=== PATIENT | female | born 1955 | race Caucasian/White ===

== ENCOUNTER 2022-10-25 15:47 | Emergency (ER) | payer MEDICARE ==
[~2022-10-25] VITALS: Ht 165.1 cm; Wt 113.4 kg
[~2022-10-25 15:47] MED LIST: Lasix20 MG PO; Macrobid 100 M100 MG PO
[2022-10-25 16:35] LABS: BASOPHILS ABSOLUTE AUTO 0.02 K/mm3 (0.00-0.23); BASOPHILS PERCENT AUTO 0 % (0-2); EOSINOPHILS ABSOLUTE AUTO 0.25 K/mm3 (0.00-0.68); EOSINOPHILS PERCENT AUTO 4 % (0-6); Hematocrit 42.4 % (33.0-51.0); Hemoglobin 14.3 g/dL (11.5-16.0); IMMATURE GRAN ABSOLUTE AUTO 0.01 K/mm3 (0.00-0.10); IMMATURE GRAN PERCENT AUTO 0 % (0-1); LYMPHOCYTES ABSOLUTE AUTO 1.14 K/mm3 (0.84-5.20); LYMPHOCYTES PERCENT AUTO 19 % (21-46); MONOCYTES ABSOLUTE AUTO 0.45 K/mm3 (0.16-1.47); MONOCYTES PERCENT AUTO 7 % (4-13); Mean Corpuscular HGB 32.4 pg (26.0-34.0); Mean Corpuscular HGB Conc 33.7 g/dL (31.5-36.5); Mean Corpuscular Volume 96 fL (80-100); Mean Platelet Volume 8.9 fL (9.1-12.4); NEUTROPHILS ABSOLUTE AUTO 4.23 K/mm3 (1.96-9.15); NEUTROPHILS PERCENT AUTO 69 % (41-73); Platelet Count 303 K/mm3 (150-400); RDW Coefficient Variation 13.8 % (11.7-14.2); RDW Standard Deviation 48.7 fL (35.1-46.3); Red Blood Cell Count 4.41 M/mm3 (3.80-5.20)
[2022-10-25 17:03] LABS: Albumin/Globulin Ratio 0.7 (0.8-1.8); Bilirubin, Total 0.8 mg/dL (0.1-1.0); Bun/Creatinine Ratio 14.7 (12.0-20.0); Calcium, Blood 8.8 mg/dL (8.5-10.1); Creatinine, Blood 0.82 mg/dL (0.40-1.00); Globulin, Blood 4.3 g/dL (2.2-4.0); Potassium, Blood 3.4 mmol/L (3.5-5.5); Total Protein, Blood 7.3 g/dL (6.4-8.2)
[2022-10-25] MEDS ORDERED: CEPH500 PO (20:35)
[2022-10-25 20:45] VITALS: BP 132/81
== END 2022-10-25 21:31 | disposition home or self-care (01) ==
LOC: ER 15:47
PROVIDERS: Physician Assistant
DX: L97.811 Non-pressure chronic ulcer of other part of right lower leg limited to breakdown of skin (principal); L97.821 Non-pressure chronic ulcer of other part of left lower leg limited to breakdown of skin; I10 Essential (primary) hypertension; Z79.899 Other long term (current) drug therapy; Z88.0 Allergy status to penicillin; Z88.2 Allergy status to sulfonamides; Z79.01 Long term (current) use of anticoagulants
CPT/HCPCS: 71046; 80053; 83880; 85025; 90471; 90714; 99283-25; A9270

== ENCOUNTER 2022-11-02 00:41 | Inpatient (IN) | payer MEDICARE ==
[~2022-11-02] VITALS: Ht 165.1 cm; Wt 113.4 kg
[~2022-11-02 00:41] MED LIST changes: +CEPH500 PO
[2022-11-02 04:04] LABS: BASOPHILS ABSOLUTE AUTO 0.03 K/mm3 (0.00-0.23); BASOPHILS PERCENT AUTO 0 % (0-2); EOSINOPHILS ABSOLUTE AUTO 0.24 K/mm3 (0.00-0.68); EOSINOPHILS PERCENT AUTO 3 % (0-6); Hematocrit 40.1 % (33.0-51.0); Hemoglobin 13.4 g/dL (11.5-16.0); IMMATURE GRAN ABSOLUTE AUTO 0.02 K/mm3 (0.00-0.10); IMMATURE GRAN PERCENT AUTO 0 % (0-1); LYMPHOCYTES ABSOLUTE AUTO 1.33 K/mm3 (0.84-5.20); LYMPHOCYTES PERCENT AUTO 19 % (21-46); MONOCYTES ABSOLUTE AUTO 0.49 K/mm3 (0.16-1.47); MONOCYTES PERCENT AUTO 7 % (4-13); Mean Corpuscular HGB 32.1 pg (26.0-34.0); Mean Corpuscular HGB Conc 33.4 g/dL (31.5-36.5); Mean Corpuscular Volume 96 fL (80-100); Mean Platelet Volume 8.9 fL (9.1-12.4); NEUTROPHILS ABSOLUTE AUTO 5.02 K/mm3 (1.96-9.15); NEUTROPHILS PERCENT AUTO 70 % (41-73); Platelet Count 235 K/mm3 (150-400); RDW Coefficient Variation 14.1 % (11.7-14.2); Red Blood Cell Count 4.18 M/mm3 (3.80-5.20); White Blood Cell Count 7.13 K/mm3 (4.00-11.30)
[2022-11-02 04:18] LABS: Albumin, Blood 2.7 g/dL (3.4-5.0); Albumin/Globulin Ratio 0.7 (0.8-1.8); Bilirubin, Total 0.9 mg/dL (0.1-1.0); Calcium, Blood 8.4 mg/dL (8.5-10.1); Creatinine, Blood 0.78 mg/dL (0.40-1.00); Globulin, Blood 3.9 g/dL (2.2-4.0); Potassium, Blood 3.4 mmol/L (3.5-5.5); Total Protein, Blood 6.6 g/dL (6.4-8.2)
[2022-11-02 06:41] VITALS: BP 123/59
[2022-11-02 08:03] VITALS: BP 120/57
[2022-11-02 10:52] LABS: Albumin, Blood 2.8 g/dL (3.4-5.0); Anion Gap 5 mmol/L (6-16); Blood Urea Nitrogen 13 mg/dL (8-24); Bun/Creatinine Ratio 17.5 (12.0-20.0); CO2, Blood 33 mmol/L (21-32); Calcium, Blood 8.4 mg/dL (8.5-10.1); Chloride, Blood 108 mmol/L (98-108); Creatinine, Blood 0.74 mg/dL (0.40-1.00); Glomerular Filtration Rate 88 (60-); Glucose, Blood 127 mg/dL (70-99); Phosphorus, Blood 2.7 mg/dL (2.5-4.9); Potassium, Blood 3.8 mmol/L (3.5-5.5); Sodium, Blood 146 mmol/L (136-145)
[2022-11-02] MEDS ORDERED: LOSARTAN-HCTZ1 EACH PO (14:48)
[2022-11-02] MEDS ORDERED: Doxycycline Mo100 M1 PO (14:50)
[2022-11-02 16:24] VITALS: BP 92/58
--- NOTE | 2022-11-02 19:22 | NUR ---
SHIFT SUMMARY PATIENT WITH PAIN TODAY, MEDICATED PER EMAR. PATIENT VERBALIZES STRESS OF FINANCIALS AND FOOD TO SUPERVISOR RESEARCH KENNEL REGARDING LIVING IN HER VAN WITH AND DOG, MOVING FROM [place] TO [place], TRYING TO GET THERE BUT HAVING MEDICAL ISSUES. BED IN LOW POSITION, CALL LIGHT IN REACH. PATIENT CALLS APPROPRIATELY.
[2022-11-02 19:24] VITALS: BP 103/56
[2022-11-03 05:17] VITALS: BP 119/71
[2022-11-03 06:03] LABS: BASOPHILS ABSOLUTE AUTO 0.01 K/mm3 (0.00-0.23); BASOPHILS PERCENT AUTO 0 % (0-2); EOSINOPHILS ABSOLUTE AUTO 0.24 K/mm3 (0.00-0.68); EOSINOPHILS PERCENT AUTO 4 % (0-6); Hematocrit 38.6 % (33.0-51.0); Hemoglobin 12.6 g/dL (11.5-16.0); IMMATURE GRAN ABSOLUTE AUTO 0.01 K/mm3 (0.00-0.10); IMMATURE GRAN PERCENT AUTO 0 % (0-1); LYMPHOCYTES ABSOLUTE AUTO 1.27 K/mm3 (0.84-5.20); LYMPHOCYTES PERCENT AUTO 22 % (21-46); MONOCYTES PERCENT AUTO 7 % (4-13); Mean Corpuscular HGB 31.7 pg (26.0-34.0); Mean Corpuscular HGB Conc 32.6 g/dL (31.5-36.5); Mean Corpuscular Volume 97 fL (80-100); Mean Platelet Volume 9.1 fL (9.1-12.4); NEUTROPHILS ABSOLUTE AUTO 3.77 K/mm3 (1.96-9.15); NEUTROPHILS PERCENT AUTO 66 % (41-73); Platelet Count 200 K/mm3 (150-400); RDW Standard Deviation 49.5 fL (35.1-46.3); Red Blood Cell Count 3.97 M/mm3 (3.80-5.20)
--- NOTE | 2022-11-03 06:14 | NUR ---
SHIFT AND SOCIAL WORK ALERT NOTE PATIENTS REMAINS ALERT AND ORIENTED X4, SOME HYPOTENTION BUT OTHERWISE VSS. WOUND CARE TO BLE COMPLETED THIS MORNING PATIENT IS INCONINENT AND SOILED THEM. PURWICK BEING USED WITH GOOD U/O. PATIENT WANTS HELP WITH HER DOG HER AND HER ILL ARE NOT ABLE TO CARE FOR HER. [facility] WAS MENTIONED AN OPTION. NO OTHER ISSUES TO REPORT.
[2022-11-03 06:31] LABS: Albumin, Blood 2.4 g/dL (3.4-5.0); Albumin/Globulin Ratio 0.6 (0.8-1.8); Bilirubin, Total 0.5 mg/dL (0.1-1.0); Bun/Creatinine Ratio 27.8 (12.0-20.0); Calcium, Blood 8.2 mg/dL (8.5-10.1); Creatinine, Blood 0.68 mg/dL (0.40-1.00); Globulin, Blood 3.7 g/dL (2.2-4.0); Potassium, Blood 3.7 mmol/L (3.5-5.5); Total Protein, Blood 6.1 g/dL (6.4-8.2)
[2022-11-03 07:52] VITALS: BP 102/66
[2022-11-03 15:17] VITALS: BP 108/74
[2022-11-03 15:43] LABS: Vancomycin, Trough 16.5 ug/mL (5.0-10.0)
--- NOTE | 2022-11-03 19:49 | NUR ---
SHIFT SUMMARY PATIENT WITH PAIN TODAY, MEDICATED PER EMAR. PUREWICK REMOVED DURING DAY TO INCREASE PATIENT ACTIVITY UP TO BATHROOM, PATIENT TOLERATED WELL BUT NEEDED NORCO MORE FREQUENTLY. PATIENT SAT ABOVE 94% ON ROOM AIR. NO ACUTE EVENTS TODAY. BED IN LOW POSITION, CALL LIGHT IN REACH. PATIENT STAYING IN ROOM WITH PATIENT OVERNIGHT
[2022-11-03 20:08] VITALS: BP 90/68
[2022-11-04 00:11] VITALS: BP 99/68
[2022-11-04 03:22] VITALS: BP 111/57
--- NOTE | 2022-11-04 04:17 | NUR ---
SHIFT SUMMARY: PATIENT A&OX4. CALM, PLEASANT AND COOPERATIVE c CARE. SOME HYPOTENSIVE BP OTHERWISE VSS. DENIES GENERALIZED PAIN OVERNIGHT. DRESSING TO BLE'S C/D/I. PUREWICKED IN PLACED AND CONNECTED TO SUCTION c TOTAL YELLOW URINE OUTPUT OF 200 MLS THIS SHIFT. REPOSITIONED. RECEIVED SCHEDULED MEDS PER EMAR. SPOUSE STAYED c PATIENT OVERNIGHT. PIV TO LAC INFUSING ABX AT THIS TIME. CALL LIGHT IN REACH. PATIENT AND SPOUSE EDUCATED ABOUT IGNITION SOURCES, RISK OF INJURY AND NON SMOKING POLICY. PATIENT AND SPOUSE DENIES SMOKING AND STATED UNDERSTANDING. POLICY
[2022-11-04 06:20] LABS: BASOPHILS ABSOLUTE AUTO 0.01 K/mm3 (0.00-0.23); BASOPHILS PERCENT AUTO 0 % (0-2); EOSINOPHILS ABSOLUTE AUTO 0.29 K/mm3 (0.00-0.68); EOSINOPHILS PERCENT AUTO 5 % (0-6); Hematocrit 39.8 % (33.0-51.0); Hemoglobin 13.2 g/dL (11.5-16.0); IMMATURE GRAN ABSOLUTE AUTO 0.01 K/mm3 (0.00-0.10); IMMATURE GRAN PERCENT AUTO 0 % (0-1); LYMPHOCYTES ABSOLUTE AUTO 0.91 K/mm3 (0.84-5.20); LYMPHOCYTES PERCENT AUTO 16 % (21-46); MONOCYTES PERCENT AUTO 7 % (4-13); Mean Corpuscular HGB 31.7 pg (26.0-34.0); Mean Corpuscular HGB Conc 33.2 g/dL (31.5-36.5); Mean Corpuscular Volume 96 fL (80-100); Mean Platelet Volume 9.5 fL (9.1-12.4); NEUTROPHILS ABSOLUTE AUTO 4.21 K/mm3 (1.96-9.15); NEUTROPHILS PERCENT AUTO 72 % (41-73); Platelet Count 213 K/mm3 (150-400); RDW Standard Deviation 48.8 fL (35.1-46.3); Red Blood Cell Count 4.16 M/mm3 (3.80-5.20); White Blood Cell Count 5.83 K/mm3 (4.00-11.30)
[2022-11-04 08:13] VITALS: BP 131/75
[2022-11-04 10:31] LABS: Albumin, Blood 2.4 g/dL (3.4-5.0); Anion Gap 7 mmol/L (6-16); Blood Urea Nitrogen 15 mg/dL (8-24); Bun/Creatinine Ratio 23.1 (12.0-20.0); CO2, Blood 32 mmol/L (21-32); Calcium, Blood 8.4 mg/dL (8.5-10.1); Chloride, Blood 104 mmol/L (98-108); Creatinine, Blood 0.65 mg/dL (0.40-1.00); Glomerular Filtration Rate 95 (60-); Glucose, Blood 95 mg/dL (70-99); Magnesium, Blood 1.8 mg/dL (1.6-2.4); Phosphorus, Blood 3.5 mg/dL (2.5-4.9); Potassium, Blood 3.4 mmol/L (3.5-5.5); Sodium, Blood 143 mmol/L (136-145)
[2022-11-04 15:37] VITALS: BP 135/83
[2022-11-04 19:14] VITALS: BP 101/64
--- NOTE | 2022-11-04 19:40 | NUR ---
SHIFT SUMMARY NO ACUTE EVENTS DURING SHIFT. DR FOWLER ORDERED ADDED LASIX THIS AFTERNOON. SWELLING HAS DECREASED SIGNIFICANTLY TO BLE. PATIENT UP TO BATHROOM WITH SBA WHEN HOOKED UP TO IV.BED IN LOW POSITION, CALL LIGHT IN REACH. PATIENT CALLS APPROPRIATELY. HOURLY ROUNDING PROVIDEDE TO PATIENT.
--- NOTE | 2022-11-05 03:20 | NUR ---
SHIFT SUMMERY. PT RESTING WELL , WOKE TO GO TO BR. SO AT BED SIDE SLEEPING IN RECLINER. PT MEDICATED FOR PAIN TO LEGS.
--- NOTE | 2022-11-05 03:22 | NUR ---
RAMYA VALENCIA TALKED ABOUT PT VU .
[2022-11-05 04:42] VITALS: BP 107/65
[2022-11-05 04:56] LABS: Bun/Creatinine Ratio 21.9 (12.0-20.0); Calcium, Blood 8.4 mg/dL (8.5-10.1); Creatinine, Blood 0.59 mg/dL (0.40-1.00); Potassium, Blood 3.8 mmol/L (3.5-5.5)
[2022-11-05 07:33] VITALS: BP 109/56
[2022-11-05 15:43] VITALS: BP 134/79
--- NOTE | 2022-11-05 18:26 | NUR ---
END OF SHIFT SUMMARY: PATIENT UP TO THE BATHROOM MULTIPLE TIMES TODAY. PATIENT'S LEGS ELEVATED THROUGHOUT THE DAY WITH PATIENT RECLINED TO PLACE FEET AT OR ABOVE HEART LEVEL. DRESSINGS REMAINED C/D/I THROUGHOUT THE DAY. PATIENT MEDICATED PER PRNS IN ADDITION TO REPOSITIONING TO ASSIST WITH PAIN CONTROL. PATIENT REPORTS THAT IT HAS BEEN A FEW DAYS SINCE HER LAST BOWEL MOVEMENT. PATIENT REPORTS THAT THIS IS NORMAL FOR HER RELATED TO MULTIPLE GASTIC SURGERIES. PATIENT DENIED NEED FOR ADDITIONAL BOWEL CARE AT THIS TIME, BUT DID REQUEST AND RECEIVE PRUNE JUICE. OXYGEN THERAPY NOT IN USE IN THE ROOM. NO FIRE HAZARDS NOTED THROUGHOUT THE DAY. REMINDED PATIENT AND PATIENT'S SPOUSE OF FIRE HAZARD PREVENTION AT [facility].
[2022-11-05 19:42] VITALS: BP 118/78
--- NOTE | 2022-11-06 04:21 | NUR ---
SHIFT SUMMARY: NO NEW ACUTE CHANGES IN PATIENT CONDITION THIS SHIFT. PATIENT A&OX4. PLEASANT AND COOPERATIVE c CARE. PATIENT IS CONTIN/INCOTIN OF BLADDER, AMBULATES TO BATHROOM c SBA T/O SHIFT AND TOLERATED WELL. PAIN TO BLE'S WELL CONTROLLED c EMAR PAIN MEDS. DRESSING CHANGED TO BLE'S PER WOUND CARE ORDER. PATIENT SLEPT WELL T/O SHIFT. VITAL SIGNS REVIEWED. CALL LIGHT IN REACH. SPOUSE STAYED c PATIENT OVERNIGHT. PATIENT AND SPOUSE EDUCATED ON NON SMOKING POLICY, IGNITION SOURCES AND RISK OF INJURY WHILE O2 IN USE. PATIENT AND SPOUSE DENIES SMOKING AND STATED UNDERSTANDING.
[2022-11-06 04:46] VITALS: BP 138/94
[2022-11-06 05:48] LABS: Hematocrit 38.8 % (33.0-51.0); Hemoglobin 12.8 g/dL (11.5-16.0); Mean Corpuscular HGB 31.9 pg (26.0-34.0); Mean Corpuscular Volume 97 fL (80-100); Mean Platelet Volume 9.3 fL (9.1-12.4); Platelet Count 206 K/mm3 (150-400); RDW Standard Deviation 48.9 fL (35.1-46.3); Red Blood Cell Count 4.01 M/mm3 (3.80-5.20); White Blood Cell Count 4.57 K/mm3 (4.00-11.30)
[2022-11-06 06:12] LABS: Albumin, Blood 2.5 g/dL (3.4-5.0); Anion Gap 4 mmol/L (6-16); Blood Urea Nitrogen 12 mg/dL (8-24); CO2, Blood 33 mmol/L (21-32); Calcium, Blood 8.5 mg/dL (8.5-10.1); Chloride, Blood 107 mmol/L (98-108); Glomerular Filtration Rate 97 (60-); Glucose, Blood 94 mg/dL (70-99); Phosphorus, Blood 2.7 mg/dL (2.5-4.9); Potassium, Blood 4.1 mmol/L (3.5-5.5); Sodium, Blood 144 mmol/L (136-145)
[2022-11-06 07:44] VITALS: BP 135/83
--- NOTE | 2022-11-06 16:22 | NUR ---
WOUND CARE BLE MUCH IMPROVED. RLE WOUND CLOSED. MOISTURIZE DAILY , OKAY TO LEAVE OPEN TO AIR. LEFT LEG WITH TWO SUPERFICIAL WOUNDS. PRIMARY DRESSING CHANGED TO XEROFORM.
[2022-11-06 16:30] VITALS: BP 123/74
--- NOTE | 2022-11-06 19:36 | NUR ---
SHIFT SUMMARY: PT A/O X 4, STANDBY ASSIST. PT IS PLEASANT AND COOPERATIVE. PT PAIN TO LEGS WELL MANAGED WITH CURRENT REGIMEN. CASE THERAPIST COMPLETED DRESSING CHANGES TO BILAT LEGS. R LEG CHAPITO. NO DRAINAGE NOTED. PER WOUND RN LEGS IMPROVED. PT HAD SMALL BM TODAY. DENIES SYMPTOMS OF CONSTIPATION. SPOUSE IN ROOM WITH PT MOST OF THE DAY AND IS SHARING MEALS AND STAFF PROVIDED SPOUSE WITH PEPSI HE REQUESTED.
--- NOTE | 2022-11-06 19:38 | NUR ---
PT AND SPOUSE EDUCATED ON DANGERS OF SMOKING AND USING IGNITION SOURCES WHILE IN THE HOSPITAL. PT AND SPOUSE VU. PT AND SPOUSE DENY HAVING IGNTITION SOURCES ON THEM AND THERE WAS NO EVIDENCE OF USE OF IGNITION SOURCES WHILE ROUNDING.
[2022-11-06 21:11] VITALS: BP 114/69
[2022-11-07 04:27] VITALS: BP 135/108
[2022-11-07 04:33] VITALS: BP 145/90
--- NOTE | 2022-11-07 05:00 | NUR ---
PATIENT SLEPT WELL THROUGH THE NIGHT, ALERT AND ORIENTED, AND CALLS TO MAKE NEEDS KNOWN. NO REPORTS OF PAIN, VSS, OTHER THAN SOME HTN AFTER AMBULATION THIS MORNING. DRESSING CDI TO LLE. 2X BM'S WITH GOOD U/O. NO OTHER ISSUES TO REPORT.
[2022-11-07 07:54] VITALS: BP 121/94
[2022-11-07] MEDS ORDERED: MICONAZOLE NITR85 GM TOP (14:10)
[2022-11-07] MEDS ORDERED: VISBIOME 112.51 EACH PO (14:11)
[2022-11-07] MEDS ORDERED: CEPH500 PO (14:11)
[2022-11-07 15:53] VITALS: BP 149/93
--- NOTE | 2022-11-07 17:50 | NUR ---
TOOK OVER PT CARE AT 1748. REPORT WAS GIVEN BY ADILSON HANSEN. PT AOX4 AND RESTING IN ROOM COMFORTABLY. NO DISTRESS NOTED AT THIS TIME.CALL LIGHT WITHIN REACH WILL CONTINUE TO MONITOR.
--- NOTE | 2022-11-07 18:14 | NUR ---
SHIFT SUMMARY: PT A/O X 4, STANDBY ASSIST. PT WAS ANXIOUS TODAY ABOUT DISCHARGE. PT REPORTED THIS AM, SHE DOES NOT GET PAID UNTIL TOMORROW AND NEEDS CLOTHING, TO PICK HER DOG UP FROM [place], NEEDS NEW BATTERY FOR VAN, ALTHOUGH SPOUSE REPORTED HE DROVE TO [place] YESTERDAY IN HIS VEHICLE TO CHECK ON HIS DOG. SHE ALSO REPORTED THEY HAVE A STORAGE UNIT IN [place] THEY NEED TO EMPTY OUT PRIOR TO THEM LEAVING. SPOUSE INDICATED HE WANTED TO GET A HOTEL ROOM TO GET "CLEANED UP" BEFORE HIS DISCHARGED. PT AND SPOUSE EDUCATED ON DISCHARGE PLAN AND FURTHER RESOURCES AVAILABLE TO THEM THEY HAVE BEEN EDUCATED ON. ALSO EDUCATED PT AND SPOUSE ON APPEAL PROCESS. PT REPORTED TO ME SHE DID NOT WANT TO APPEAL, BUT EVENTUALLY PT NOTIFIED HER APPEAL WAS RECEIVED. PT IS SHARING HER MEALS WITH HER SPOUSE AND PER PT ADVOCACY WE ARE TO ALLOW HER TO SHARE MEALS. PT WOUNDS ARE HEALING, EDEMA MUCH IMPROVED AND WOUNDS NO LONGER WEEPING. PT HAD NO COMPLAINTS OF PAIN TODAY. TOLERATING PO ABX KEFLEX. HAVING REGULAR BM'S AND CONTINENT THROUGHOUT THE DAY TODAY.
--- NOTE | 2022-11-07 18:20 | NUR ---
PT AND SPOUSE EDUCATED ON DANGERS OF SMOKING AND USING IGNITION SOURCES WHILE IN THE HOSPITAL. PT/SP VU. NO EVIDENT USE OF IGNITION SOURCES WHILE ROUNDING TODAY. REPORT GIVEN TO KAIA DE ANDA.
[2022-11-07 19:31] VITALS: BP 108/64
--- NOTE | 2022-11-08 04:36 | NUR ---
SHIFT SUMMARY PATIENT HAD NO ACUTE CHANGES. AXOX 4 AND SBA TO BSC. TAKES MEDICATION WHOLE WITH WATER. ON ROOM AIR. VSS/AFEBRILE. DENIES CHEST PAIN, SOB, AND N/V. SPOUSE PRESENT IN ROOM T/O SHIFT. DRESSING LLE C/D/I. EDUCATED PATIENT AND SPOUSE ON DANGERS OF SMOKING AND USING IGNITION SOURCE WHILE IN HOSPITAL. DENIES HAVING IGNITION SOURCE AND NO EVIDENCE OF IGNITION SOURCE. CALL LIGHT IN REACH. BED IN LOWEST POSITION. WILL CONTINUE TO MONITOR UNTIL DAY SHIFT NURSE ASSUMES CARE.
[2022-11-08 07:56] VITALS: BP 144/100
--- NOTE | 2022-11-08 15:30 | NUR ---
DISCUSSED DISCHARGE INSTRUCTIONS WITH PT AND PROVIDED WRITTEN INSTRUCTIONS IN YELLOW DISCHARGE ENVELOPE. IV REMOVED, CATHETER INTACT. PT'S AT BEDSIDE WHO IS PROVIDING TRANSPORTATION. PT STATES THEY ARE ON THEIR WAY TO HER [id number] HOME IN [place]. CARE MANAGEMENT PROVIDED GIFT CARD TO ASSIST PT WITH GASOLINE, GIVEN TO PT JUST PRIOR TO DISCHARGE. PT GAVE GIFT CARD TO HER AND REQUESTED HE PLACE IT IN HIS WALLET. PT TRANSPORTED TO PERSONAL VEHICLE VIA WHEELCHAIR, APPRECIATE PUBLIC HOUSING MANAGER'S ASSISTANCE WITH TRANSPORT.
== END 2022-11-08 17:52 | disposition home or self-care (01) | DRG 603 ==
LOC: ER 00:41 → MEDS 00:42 → ENPENDDIS 11-07 09:50 → MEDS 11-08 17:52
PROVIDERS: Family Medicine; Internal Medicine; Student in an Organized Health Care Education/Training Program; ADMIT Internal Medicine
DX: L03.116 Cellulitis of left lower limb (principal); Z68.41 Body mass index [BMI] 40.0-44.9, adult; L03.115 Cellulitis of right lower limb; E87.6 Hypokalemia; B96.4 Proteus (mirabilis) (morganii) as the cause of diseases classified elsewhere; B95.0 Streptococcus, group A, as the cause of diseases classified elsewhere; I10 Essential (primary) hypertension; I87.2 Venous insufficiency (chronic) (peripheral); G47.33 Obstructive sleep apnea (adult) (pediatric); E88.09 Other disorders of plasma-protein metabolism, not elsewhere classified; G47.34 Idiopathic sleep related nonobstructive alveolar hypoventilation; E66.01 Morbid (severe) obesity due to excess calories; Z59.00 Homelessness unspecified; Z88.2 Allergy status to sulfonamides; Z88.0 Allergy status to penicillin; Z88.8 Allergy status to other drugs, medicaments and biological substances; Z98.84 Bariatric surgery status; Z90.49 Acquired absence of other specified parts of digestive tract; Z90.89 Acquired absence of other organs; Z79.899 Other long term (current) drug therapy
CPT/HCPCS: 36415; 36416; 80048; 80053; 80069; 80202; 83605; 83735; 83880; 85025; 85027; 85379; 87040; 87070; 87075; 87077; 87147; 87186; 87205; 93005; 93010; 93970; 94760; 94762; 96365; 96366; 96367; 96372; 96375; 96376; 99284-25; A9270; G0378; J0690; J1650; J1940; J3010; J3370; J7050

== ENCOUNTER 2022-11-18 17:23 | Emergency (ER) | payer MEDICARE ==
[~2022-11-18] VITALS: Ht 167.6 cm; Wt 104.3 kg
[~2022-11-18 17:23] MED LIST changes: +Doxycycline Mo100 M1 PO; +LOSARTAN-HCTZ1 EACH PO; +MICONAZOLE NITR85 GM TOP; +VISBIOME 112.51 EACH PO
[2022-11-18 17:49] VITALS: BP 175/98
[2022-11-19] MEDS ORDERED: IBUP400 PO (06:08)
[2022-11-19] MEDS ORDERED: ACET500 PO (06:08)
== END 2022-11-18 18:47 | disposition home or self-care (01) ==
LOC: ER 17:23
DX: S81.802A Unspecified open wound, left lower leg, initial encounter (principal); I10 Essential (primary) hypertension; Z88.0 Allergy status to penicillin; Z88.2 Allergy status to sulfonamides; Z88.8 Allergy status to other drugs, medicaments and biological substances; Z79.899 Other long term (current) drug therapy; X58.XXXA Exposure to other specified factors, initial encounter
CPT/HCPCS: 99282

== ENCOUNTER 2022-11-19 04:01 | Emergency (ER) | payer MEDICARE ==
[~2022-11-19] VITALS: Ht 167.6 cm; Wt 104.8 kg
[2022-11-19 04:57] LABS: BASOPHILS ABSOLUTE AUTO 0.03 K/mm3 (0.00-0.23); BASOPHILS PERCENT AUTO 1 % (0-2); EOSINOPHILS ABSOLUTE AUTO 0.38 K/mm3 (0.00-0.68); EOSINOPHILS PERCENT AUTO 8 % (0-6); Hematocrit 39.6 % (33.0-51.0); Hemoglobin 13.4 g/dL (11.5-16.0); IMMATURE GRAN ABSOLUTE AUTO 0.01 K/mm3 (0.00-0.10); IMMATURE GRAN PERCENT AUTO 0 % (0-1); LYMPHOCYTES PERCENT AUTO 31 % (21-46); MONOCYTES ABSOLUTE AUTO 0.44 K/mm3 (0.16-1.47); MONOCYTES PERCENT AUTO 9 % (4-13); Mean Corpuscular HGB 32.4 pg (26.0-34.0); Mean Corpuscular HGB Conc 33.8 g/dL (31.5-36.5); Mean Corpuscular Volume 96 fL (80-100); Mean Platelet Volume 9.3 fL (9.1-12.4); NEUTROPHILS ABSOLUTE AUTO 2.64 K/mm3 (1.96-9.15); NEUTROPHILS PERCENT AUTO 52 % (41-73); Platelet Count 230 K/mm3 (150-400); RDW Coefficient Variation 14.3 % (11.7-14.2); RDW Standard Deviation 49.9 fL (35.1-46.3); Red Blood Cell Count 4.13 M/mm3 (3.80-5.20)
[2022-11-19 05:31] LABS: Anion Gap 4 mmol/L (6-16); Blood Urea Nitrogen 12 mg/dL (8-24); Bun/Creatinine Ratio 15.4 (12.0-20.0); C-REACTIVE PROTEIN, EXT RANGE <0.290 mg/dL (0.000-0.300); CO2, Blood 26 mmol/L (21-32); Calcium, Blood 8.4 mg/dL (8.5-10.1); Chloride, Blood 114 mmol/L (98-108); Creatinine, Blood 0.78 mg/dL (0.40-1.00); Glomerular Filtration Rate 82 (60-); Glucose, Blood 104 mg/dL (70-99); Potassium, Blood 3.4 mmol/L (3.5-5.5); Sodium, Blood 144 mmol/L (136-145)
[2022-11-19] MEDS ORDERED: ACET500 PO (06:08)
[2022-11-19] MEDS ORDERED: IBUP400 PO (06:08)
[2022-11-19 06:39] VITALS: BP 128/78
== END 2022-11-19 06:40 | disposition home or self-care (01) ==
LOC: ER 04:01
PROVIDERS: Student in an Organized Health Care Education/Training Program
DX: I87.8 Other specified disorders of veins (principal); E87.6 Hypokalemia; S81.802A Unspecified open wound, left lower leg, initial encounter; S81.801A Unspecified open wound, right lower leg, initial encounter; I10 Essential (primary) hypertension; Z88.0 Allergy status to penicillin; Z88.2 Allergy status to sulfonamides; Z88.8 Allergy status to other drugs, medicaments and biological substances; Z79.899 Other long term (current) drug therapy; X58.XXXA Exposure to other specified factors, initial encounter
CPT/HCPCS: 80048; 85025; 85651; 86140; 96374; 99283-25; A9270; J1885